=== PATIENT | female | born 1960 | race Caucasian/White ===

== ENCOUNTER 2018-06-27 20:10 | Emergency (ER) | payer BC ==
[2018-06-27] MEDS ORDERED: Orphenadrine 100 MG Tab.ER PO ONE (21:19)
--- NOTE | 2018-06-27 21:23 | EDM.PDOC ---
ED HPI GENERAL MEDICAL PROBLEM - General Chief Complaint: Back Pain or Injury Stated Complaint: BACK PAIN Time Seen by Provider: 06/27/18 20:30 Source of Information: Reports: Patient, RN Notes Reviewed History Limitations: Reports: No Limitations - History of Present Illness INITIAL COMMENTS - FREE TEXT/NARRATIVE: Patient is a 58-year-old female who presents to the ED for the evaluation of back pain. The patient states that on Saturday she stepped up on a movable ottoman to reach something off of a higher shelf, when she got bucked off of the ottoman. She initially twisted her right ankle at that time. It was a couple days later that she noticed some mid to lower back pain. The patient states that she took her dad to [place] in a wheelchair and wheeled him all over the hospitals for his appointments today and she noticed her back to have some spasms at this point. She did take 1 Aleve about 1-1/2 hours ago. She notes to have pain in her tailbone area and right mid back. She states she did not have any issues with back pain prior to this. She denies any numbness or tingling at this time. She does have a primary care provider that is at the [facility]. Back Pain Score (Numeric/FACES): 8 - Related Data Allergies Allergy/AdvReac Type Severity Reaction Status Date / Time No Known Allergies Allergy Verified 06/27/18 20:28 Home Meds: Home Meds Orphenadrine [Norflex] 100 mg PO BID PRN #20 tab 06/27/18 [Rx] Past Medical History Cardiovascular History: Reports: High Cholesterol - Past Surgical History GI Surgical History: Reports: Colonoscopy Female Surgical History: Reports: Breast Biopsy, Other (See Below) Other Female Surgeries/Procedures: right breast lumpectomy Social & Family History - Tobacco Use Smoking Status *Q: Never Smoker ED ROS GENERAL - Review of Systems Review Of Systems: See Below Constitutional: Denies: Fever, Chills HEENT: Reports: No Symptoms Respiratory: Reports: No Symptoms Cardiovascular: Reports: No Symptoms Endocrine: Reports: No Symptoms GI/Abdominal: Reports: No Symptoms : Reports: No Symptoms Musculoskeletal: Reports: Back Pain (tailbone/mid back) Skin: Reports: No Symptoms Neurological: Reports: No Symptoms Psychiatric: Reports: No Symptoms Hematologic/Lymphatic: Reports: No Symptoms Immunologic: Reports: No Symptoms ED EXAM,LOWER BACK PAIN/INJURY - Physical Exam Exam: See Below Exam Limited By: No Limitations General Appearance: Alert, WD/WN, No Apparent Distress Eye Exam: Bilateral Eye: Normal Inspection Head: Atraumatic, Normocephalic Neck: Normal Inspection, Supple, Non-Tender, Full Range of Motion Respiratory/Chest: No Respiratory Distress, Lungs Clear, Normal Breath Sounds, No Accessory Muscle Use, Chest Non-Tender Cardiovascular: Normal Peripheral Pulses, Regular Rate, Rhythm, No Murmur GI/Abdominal: Normal Bowel Sounds, Soft, Non-Tender, No Distention, No Mass Back Exam: Normal Inspection, Full Range of Motion, Muscle Spasm (noted to midline back) Extremities: Normal Inspection, Normal Capillary Refill Neurological: Alert, Normal Mood/Affect, Normal Dorsiflexion, Normal Plantar Flexion, Normal Gait, Normal Reflexes, No Motor/Sensory Deficits, Oriented x 3. No: Saddle Anesthesia Psychiatric: Normal Affect, Normal Mood Skin Exam: Warm, Dry, Intact, Normal Color, No Rash Course - Vital Signs Last Recorded V/S: Last Vital Signs Temp 98.0 F 06/27/18 20:29 Pulse 92 06/27/18 20:29 Resp 19 06/27/18 20:29 BP 122/86 06/27/18 20:29 Pulse Ox 96 06/27/18 20:29 - Orders/Labs/Meds Meds: Medications Discontinued Medications Generic Name Dose Route Start Last Admin Trade Name Freq PRN Reason Stop Dose Admin Orphenadrine Citrate 100 mg 06/27/18 21:19 Norflex PO 06/27/18 21:20 BEDTIME ONE - Re-Assessments/Exams Free Text/Narrative Re-Assessment/Exam: 06/27/18 21:20 Patient presents to the ED for evaluation of back pain. It is likely that she has some sort of musculoskeletal strain as her pain was relieved with Aleve. I did entertain the thought of x-rays at this time, however the patient states that she will have an appointment with her primary care provider next week and will have x-rays done then. I have provided her with one tablet of Norflex in the ED, and a prescription for Norflex at home use. And will give general conservative management recommendations. I have directed her on worrisome signs for return at this time. Patient is okay with this plan. Departure - Departure Time of Disposition: 21:20 Disposition: Home, Self-Care 01 Condition: Fair Clinical Impression: Mid back pain on right side - Discharge Information *PRESCRIPTION DRUG MONITORING PROGRAM REVIEWED*: No *COPY OF PRESCRIPTION DRUG MONITORING REPORT IN PATIENT TERESA: No Prescriptions: Orphenadrine [Norflex] 100 mg PO BID PRN #20 tab PRN Reason: Spasms Instructions: Muscle Strain, [id number] Referrals: Carlos Gibbs MD [Primary Care Provider] - Forms: ED Department Discharge Additional Instructions: You have been evaluated in the ED for your back pain X-rays were not done at this visit, please follow conservative management as directed and seek further imaging by your provider [facility] to limit your radiation exposure. Please use ice/heat as tolerated to the affected area. You may take tylenol 500 mg or ibuprofen 600mg q6 hrs for pain relief. Please do so until you have a tolerable level of pain with activity. Do not exceed 4000mg tylenol, Do not exceed 3200mg ibuprofen in a 24 hour time period. You may also take up to 2 tablets of Aleve every 12 hours for pain relief if you should desire. Please take the Norflex, 1 tab every 12 hours as needed for muscle spasms. You have been given a prescription and this is been electronically sent to the [place] [facility] located in the [facility]. Please return to ED if your symptoms should change or worsen.
== END 2018-06-27 21:50 | disposition home or self-care (01) ==
LOC: JD.ED 20:10
DX: M54.6 Pain in thoracic spine (principal); Z79.899 Other long term (current) drug therapy
CPT/HCPCS: 99283; A9270

== ENCOUNTER 2022-12-05 08:30 | Day surgery (SDC) | payer BC ==
[~2022-12-05 08:30] MED LIST: Lactated Ringers 1,000 ML IV SCH; Morphine 8 MG, EPINEPHrine 0.3 MG, Cefuroxime 750 MG, Ketorolac 30 MG, Sodium Chloride ... PRN; Sodium Chloride 0.9% 10 ML Syringe FLUSH PRN; Sodium Chloride 0.9% 10 ML Syringe FLUSH SCH
[2022-12-05 09:45] LABS: PROTHROMBIN TIME 9.9 SECONDS (9.7-12.0)
[2022-12-05 09:46] LABS: PTT,PARTIAL THROMBOPLSTIN TIME 25.3 SECONDS (21.7-31.4)
[2022-12-05 09:57] LABS: INR < 0.93
[2022-12-05] MEDS ORDERED: Vancomycin 1 GM SDV ONE (11:08)
[2022-12-05] MEDS ORDERED: Tranexamic Acid 1,000 MG/10 ML Vial ONE (11:08)
[2022-12-05] MEDS ORDERED: ceFAZolin 2 GM Vial ONE (12:02)
[2022-12-05] MEDS ORDERED: Propofol 200 MG/20 ML SDV ONE (12:02)
[2022-12-05] MEDS ORDERED: Midazolam 1 MG/ML 2 ML SDV ONE (12:02)
[2022-12-05] MEDS ORDERED: Lidocaine 1% 4 ML ONE (12:20)
[2022-12-05] MEDS ORDERED: Phenylephrine 1% 10 MG/ML SDV ONE (12:26)
[2022-12-05] MEDS ORDERED: Ondansetron 4 MG/2 ML SDV ONE (12:28)
[2022-12-05] MEDS ORDERED: Dexamethasone 4 MG/ML 5 ML MDV ONE (12:28)
[2022-12-05] MEDS ORDERED: Ketorolac 30 MG/ML SDV ONE (12:28)
[2022-12-05] MEDS ORDERED: ePHEDrine 50 MG/ML SDV ONE (12:30)
[2022-12-05] MEDS ORDERED: Lactated Ringers 1,000 ML ONE (12:41)
[2022-12-05] MEDS ORDERED: Acetaminophen/HYDROcodone 325-5 MG Tab PO PRN (16:05)
[2022-12-05] MEDS ORDERED: Ondansetron 4 MG/2 ML SDV IVPUSH SCH (16:08)
== END 2022-12-05 16:40 | disposition home or self-care (01) ==
LOC: JD.SDS 08:30
PROVIDERS: ATTEND Orthopaedic Surgery
DX: M16.12 Unilateral primary osteoarthritis, left hip (principal); I10 Essential (primary) hypertension; R41.3 Other amnesia; R11.2 Nausea with vomiting, unspecified; E78.00 Pure hypercholesterolemia, unspecified; E66.3 Overweight; Z68.28 Body mass index [BMI] 28.0-28.9, adult; Z98.890 Other specified postprocedural states; Z79.899 Other long term (current) drug therapy; Z88.8 Allergy status to other drugs, medicaments and biological substances
CPT/HCPCS: 27130; 36415; 73501; 85610; 85730; 86850; 86900; 86901; 97110; 97116; 97161; A9270; C1713; C1776; J0171; J0690; J0697; J1100; J1885; J2250; J2270; J2371; J2405; J2704; J3370; J7030; J7120; 01214; J3490